=== PATIENT | female | born 2000 | race African-American/Black ===

== ENCOUNTER 2021-02-11 00:35 | Emergency (ER) | payer MEDICAID ==
[~2021-02-11] VITALS: Ht 172.7 cm; Wt 68.0 kg
[~2021-02-11 00:35] MED LIST: ALBU6.7H11 IH; ARIP20TA2 GT; DIVA250T4 PO; ESCI10TA PO; FERR-43 PO; LEVO50TA8 PO; TOPUD PO
[2021-02-11] MEDS ORDERED: LORAZEPAM 2MG/ML CPJ IV ONE (01:15)
[2021-02-11] MEDS ORDERED: SODIUM CHLORIDE 0.9% 1,000 ML IV ONE (01:15)
[2021-02-11 01:22] LABS: BASOPHILS % 0.6 % (0.0-2.0); EOSINOPHILS % 1.5 % (0.0-5.0); HEMATOCRIT. 38.1 % (36.0-48.0); HEMOGLOBIN. 13.2 g/dL (12.0-16.0); LYMPHOCYTES % 33.1 % (20.0-50.0); MEAN CORPUSCULAR HEMOGLOBIN 29.6 pg (28.0-32.0); MEAN CORPUSCULAR VOLUME 85.7 fL (81.0-99.0); MEAN PLATELET VOLUME 8.8 fl (7.4-10.4); MONOCYTES % 8.9 % (2.0-8.0); NEUTROPHILS % 55.9 % (40.0-76.0); PLATELET 292 x1000/uL (130-400); RED BLOOD CELL COUNT 4.45 mill/uL (4.2-5.4); RED CELL DISTRIBUTION WIDTH 13.9 % (11.6-14.6)
[2021-02-11 01:28] LABS: CHLORIDE 108 mEq/L (98-107)
[2021-02-11 01:32] LABS: ETHANOL BLOOD < 10 mg/dL
[2021-02-11 02:35] LABS: *AMPHETAMINES SCREEN URINE NEGATIVE (NEGATIVE); *BARBITURATES SCREEN URINE NEGATIVE (NEGATIVE); *BENZODIAZEPINES SCREEN URINE NEGATIVE (NEGATIVE); *COCAINE SCREEN URINE NEGATIVE (NEGATIVE)
[2021-02-11 02:36] LABS: METHADONE URINE SCREEN NEGATIVE (NEGATIVE); OPIATES URINE SCREEN NEGATIVE (NEGATIVE); PHENCYCLIDINE URINE SCREEN NEGATIVE (NEGATIVE)
[2021-02-11 02:37] LABS: CANNABINOID URINE SCREEN NEGATIVE (NEGATIVE)
[2021-02-11] MEDS ORDERED: ACETAMINOPHEN 325MG TABLET PO SCH (03:15)
[2021-02-11 03:47] VITALS: BP 114/77
== END 2021-02-11 04:00 | disposition home or self-care (01) ==
LOC: ER 00:35
DX: R56.9 Unspecified convulsions (principal); Z86.59 Personal history of other mental and behavioral disorders; Z86.39 Personal history of other endocrine, nutritional and metabolic disease
CPT/HCPCS: 36415; 80053; 80305; 80320; 81025; 85025; 93005; 96361; 96374; 99284; J2060; J7030; Z7610; G0480